=== PATIENT | female | born 1970 | race Caucasian/White ===

== ENCOUNTER 2016-10-31 04:06 | Emergency (ER) | payer OTHER ==
[~2016-10-31] VITALS: Ht 157.5 cm; Wt 81.5 kg
[~2016-10-31 04:06] MED LIST: NO MEDS
[2016-10-31 04:11] VITALS: Ht 157.5 cm; Wt 81.5 kg
[2016-10-31] MEDS ORDERED: ONDANSETRON 4 MG INJ IV STA (04:16)
[2016-10-31] MEDS ORDERED: morphine 4 MG/ML VIAL IV STA (04:16)
[2016-10-31] MEDS ORDERED: SOD CHLORIDE 0.9% 500 ML IV STA (04:16)
[2016-10-31 04:53] LABS: BASOPHILS % 0.4 % (0.0-2.0); EOSINOPHILS % 0.7 % (0.0-7.0); HEMATOCRIT 37.8 % (37.0-47.0); HEMOGLOBIN 12.5 g/dl (12.0-16.0); LYMPHOCYTES # 2.2 10^3/ul (0.8-2.9); LYMPHOCYTES % 37.1 % (15.0-51.0); MEAN CORPUSCULAR HEMOGLOBIN 28.3 pg (29.0-33.0); MEAN CORPUSCULAR HGB CONC 33.1 g/dl (32.0-37.0); MEAN CORPUSCULAR VOLUME 85.4 fl (82.0-101.0); MEAN PLATELET VOLUME 9.5 fl (7.4-10.4); MONOCYTE # 0.5 10^3/ul (0.3-0.9); MONOCYTES % 8.3 % (0.0-11.0); NEUTROPHIL # 3.2 10^3/ul (1.6-7.5); NEUTROPHILS % 53.5 % (39.0-77.0); PLATELET COUNT 221 10^3/UL (140-440); RED BLOOD COUNT 4.43 10^6/ul (4.20-5.40); RED CELL DISTRIBUTION WIDTH 13.5 % (11.5-14.5)
[2016-10-31 04:54] LABS: ADD UMIC YES; URINE BILIRUBIN (Dip) NEGATIVE (NEGATIVE); URINE BLOOD (Dip) TRACE (NEGATIVE); URINE COLOR LT. YELLOW (YELLOW); URINE GLUCOSE (Dip) NEGATIVE (NEGATIVE); URINE KETONES (Dip) TRACE (NEGATIVE); URINE LEUKOCYTE ESTERASE (Dip) 2+ (NEGATIVE); URINE NITRITE (Dip) NEGATIVE (NEGATIVE); URINE TOTAL PROTEIN (Dip) NEGATIVE (NEGATIVE); URINE UROBILINOGEN (Dip) 0.2 E.U./dL (0.1-1.0)
[2016-10-31 05:02] LABS: ALBUMIN 3.7 g/dl (3.3-4.9)
[2016-10-31 05:03] LABS: POTASSIUM 4.2 mmol/L (3.5-5.1)
[2016-10-31 05:05] LABS: ALBUMIN/GLOBULIN RATIO 1.19; BILIRUBIN,INDIRECT 0.2 mg/dl (0-1.1); BILIRUBIN,TOTAL 0.2 mg/dl (0.2-1.3); CONDITION 1; CREATININE 0.52 mg/dl (0.44-1.00); TOTAL PROTEIN 6.8 g/dl (6.1-8.1)
[2016-10-31] MEDS ORDERED: HYDROmorphONE 1 MG/ML SYG IV STA (05:05)
[2016-10-31 05:06] LABS: CALCIUM 8.5 mg/dl (8.4-10.2)
[2016-10-31 05:09] LABS: BACTERIA,URINE MODERATE; MUCUS,URINE FEW; SQUAMOUS EPITHELIAL CELL,UR MODERATE
--- NOTE | 2016-10-31 05:33 | ERA ---
ER Documentation Chief Complaint Date/Time DATE: 10/31/16 TIME: 05:32 Chief Complaint lower abd pain w/ diarrhea and nausea x 4 days, radiates to lower back HPI This is a 46 year female lower abdominal pain diarrhea nausea 4 days. The pain starts in the lower abdomen radiates to lower back. Pain is mild to moderate intensity. No fevers no chills. No other current complaints. No blood in stool. Tolerating by mouth at home. ROS All systems reviewed and are negative except as per history of present illness. Medications Home Meds Reported Medications [No Meds] No Conflict Check 07/31/14 Allergies Allergies: Coded Allergies: Penicillins (Unverified Allergy, Unknown, 07/31/14) PMhx/Soc History of Surgery: Yes (cholecystectomy) Anesthesia Reaction: No Hx Neurological Disorder: No Hx Respiratory Disorders: No Hx Cardiac Disorders: No Hx Psychiatric Problems: No Hx Miscellaneous Medical Probl: Yes (constipation) Hx Alcohol Use: No Hx Substance Use: No Hx Tobacco Use: No Smoking Status: Never smoker Physical Exam Vitals Vital Signs Date Time Temp Pulse Resp B/P Pulse Ox O2 Delivery O2 Flow Rate FiO2 10/31/16 04:11 98.5 80 18 140/98 99 Physical Exam Const: [] Head: Atraumatic Eyes: Normal Conjunctiva ENT: Normal External Ears, Nose and Mouth. Neck: Full range of motion..~ No meningismus. Resp: Clear to auscultation bilaterally Cardio: Regular rate and rhythm, no murmurs Abd: Soft, non tender, non distended. Normal bowel sounds Skin: No petechiae or rashes Back: No midline or flank tenderness Ext: No cyanosis, or edema Neur: Awake and alert Psych: Normal Mood and Affect Result Diagram: 10/31/160 10/31/16439 Results 24 hrs Laboratory Tests Test 10/31/16 04:40 Alanine Aminotransferase (ALT/SGPT) 52IU/L Albumin 3.7g/dl Albumin/Globulin Ratio 1.19 Alkaline Phosphatase 78IU/L Anion Gap 14 Aspartate Amino Transf (AST/SGOT) 39IU/L Basophils # 0.010^3/ul Basophils % 0.4% Blood Morphology Comment Blood Urea Nitrogen 11mg/dl Calcium Level 8.5mg/dl Carbon Dioxide Level 23mmol/L Chloride Level 108mmol/L Creatinine 0.52mg/dl Direct Bilirubin 0.00mg/dl Eosinophils # 0.010^3/ul Eosinophils % 0.7% Globulin 3.10g/dl Glucose Level 92mg/dl Hematocrit 37.8% Hemoglobin 12.5g/dl Indirect Bilirubin 0.2mg/dl Lipase 65U/L Lymphocytes # 2.210^3/ul Lymphocytes % 37.1% Mean Corpuscular Hemoglobin 28.3pg Mean Corpuscular Hemoglobin Concent 33.1g/dl Mean Corpuscular Volume 85.4fl Mean Platelet Volume 9.5fl Monocytes # 0.510^3/ul Monocytes % 8.3% Neutrophils # 3.210^3/ul Neutrophils % 53.5% Nucleated Red Blood Cells # 0.010^3/ul Nucleated Red Blood Cells % 0.0/100WBC Platelet Count 14453^3/UL Potassium Level 4.2mmol/L Red Blood Count 4.4310^6/ul Red Cell Distribution Width 13.5% Sodium Level 141mmol/L Total Bilirubin 0.2mg/dl Total Protein 6.8g/dl Urine Bacteria MODERATE Urine Bilirubin NEGATIVE Urine Clarity CLEAR Urine Color LT. YELLOW Urine Glucose NEGATIVE% Urine Hemoglobin TRACE Urine Ketones TRACE Urine Leukocyte Esterase 2+ Urine Microscopic RBC 2-5/HPF Urine Microscopic WBC 5-10/HPF Urine Mucus FEW Urine Nitrite NEGATIVE Urine Specific Geraldine 1.015 Urine Squamous Epithelial Cells MODERATE Urine Total Protein NEGATIVE Urine Urobilinogen 0.2 E.U./dL Urine pH 7.0 White Blood Count 6.010^3/ul Current Medications Medications (Trade) Dose Ordered Sig/Geri Route PRN Reason Start Time Stop Time Status Last Admin Dose Admin Sodium Chloride (NS) 500 ml @ 500 mls/hr Q1H STAT IV 10/31/16 04:16 10/31/16 05:15 DC 10/31/16 04:44 Morphine Sulfate (morphine) 4 mg ONCE STAT IV 10/31/16 04:16 10/31/16 04:18 DC 10/31/16 04:44 Ondansetron HCl (Zofran Inj) 4 mg ONCE STAT IV 10/31/16 04:16 10/31/16 04:18 DC 10/31/16 04:43 Hydromorphone HCl (Dilaudid) 1 mg ONCE STAT IV 10/31/16 05:05 10/31/16 05:06 DC 10/31/16 05:18 Procedures/MDM CBC: [no e/o of systemic infection or severe anemia] CMP: [no e/o severe acidosis, alkalosis, renal failure, diabetic ketoacidosis, liver disease] Lipase: [no e/o pancreatitis] PT/INR: [normal coagulation] Urine: [no e/o acute infection or hematuria] Medical decision-making: This very pleasant patient as well as a mild bacterial gastroenteritis. At this point is likely bacterial given the fact that she said diarrhea for 3-4 days. She'll be discharged home with empiric antibiotics and Cipro and Flagyl. Discharged with tramadol for pain control Zofran for nausea. Follow-up in 8 hours resealed abdominal exams. No evidence of acute abdomen on serial abdominal examinations here in the emergency department. Patient is currently pain-free at time of dictation Departure Diagnosis: Primary Impression: Abdominal pain Qualified Code: R10.9 - Abdominal pain, unspecified location Condition: Stable MYKE CHEW Oct 31, 2016 05:33
[2016-10-31] MEDS ORDERED: TRAM50TA2 PO (05:34)
[2016-10-31] MEDS ORDERED: CIPR500T4 PO (05:34)
[2016-10-31] MEDS ORDERED: METR500T PO (05:34)
[2016-10-31] MEDS ORDERED: ONDA4TAB14 PO (05:34)
[2016-10-31 06:06] VITALS: BP 134/87; PULSE 72; RESP 18
== END 2016-10-31 06:07 | disposition home or self-care (01) ==
LOC: E/R 04:06
DX: R10.30 Lower abdominal pain, unspecified (principal); R40.2252 Coma scale, best verbal response, oriented, at arrival to emergency department; R11.0 Nausea; R40.2142 Coma scale, eyes open, spontaneous, at arrival to emergency department; R40.2362 Coma scale, best motor response, obeys commands, at arrival to emergency department
CPT/HCPCS: 36415; 80053; 81001; 83690; 85025; 96374; 96375; J1170; J2270; J2405; J7040; Z7502; 81003